=== PATIENT | female | born 1995 | race Two or more races ===

== ENCOUNTER 2018-05-04 07:36 | Emergency (ER) | payer SELFPAY ==
[~2018-05-04] VITALS: Ht 160 cm; Wt 54.4 kg
[2018-05-04 07:45] VITALS: Ht 160 cm; Wt 54.4 kg
[2018-05-04 08:35] LABS: BASOPHIL % 0.3 % (0-2); PLATELET COUNT 230 x10^3mcL (130-400); RED CELL DISTRIBUTION WIDTH 14.3 % (11.5-14.5)
[2018-05-04 08:47] LABS: CARBON DIOXIDE 20.7 mmol/L (21-32); CHLORIDE SERUM 105 mmol/L (98-107); CREATININE SERUM 0.9 mg/dL (0.6-1.0); GFR1 > 60 mL/min; GLUCOSE SERUM 143 mg/dL (74-106); POTASSIUM SERUM 3.4 mmol/L (3.5-5.1); SODIUM SERUM 140 mmol/L (136-145)
[2018-05-04 08:51] LABS: ALBUMIN 3.7 g/dL (3.4-5.0); ALKALINE PHOSPHATASE 72 U/L (46-116); ALT/SGPT 7 U/L (14-59); AMYLASE 46 U/L (25-115); AST/SGOT 13 U/L (15-37); BILIRUBIN TOTAL 0.46 mg/dL (0.20-1.00); LIPASE 81 IU/L (73-393); TOTAL PROTEIN, SERUM 7.5 g/dL (6.4-8.2)
[2018-05-04 08:53] LABS: UA SPECIFIC GRAVITY >=1.030 (1.005-1.035); microscopic required? YES; urine erythrocyte TRACE (NEGATIVE)
[2018-05-04 10:23] VITALS: BP 105/62
== END 2018-05-04 10:27 | disposition home or self-care (01) ==
LOC: ED 07:36
PROVIDERS: Emergency Medicine
DX: R33.9 Retention of urine, unspecified (principal); F12.20 Cannabis dependence, uncomplicated
CPT/HCPCS: 83880; J1885; Q0162